=== PATIENT | female | born 1995 | race Caucasian/White ===

== ENCOUNTER 2020-02-20 08:27 | Outpatient (REF) | payer OTHER, SELFPAY ==
[2020-02-21 08:27] LABS: BV Int Neg Control Negative (Negative); BV Int Pos Control Positive (Positive)
[2020-02-22 05:41] LABS: C. trachomatis RNA TMA DETECTED (NOT DETECTED); N. gonorrhoeae RNA TMA NOT DETECTED (NOT DETECTED)
== END 2020-02-20 08:28 | disposition home or self-care (01) ==
LOC: HO.LAB 08:27
PROVIDERS: PCP Internal Medicine; Visit Provider Advanced Practice Midwife
DX: Z20.2 Contact with and (suspected) exposure to infections with a predominantly sexual mode of transmission (principal); N89.8 Other specified noninflammatory disorders of vagina
CPT/HCPCS: 87480; 87491; 87510; 87591; 87660

== ENCOUNTER 2020-02-22 09:18 | Outpatient (REF) | payer OTHER, SELFPAY ==
[2020-02-22 09:35] LABS: COVID-19 Test Negative (Negative)
== END 2020-02-22 09:19 | disposition home or self-care (01) ==
LOC: HO.EMPCOV 09:18
PROVIDERS: Visit Provider Internal Medicine
DX: Z20.828 Contact with and (suspected) exposure to other viral communicable diseases (principal)
CPT/HCPCS: 87635; C9803

== ENCOUNTER 2020-03-14 08:56 | Outpatient (REF) | payer OTHER, SELFPAY ==
[2020-03-14 09:20] LABS: COVID-19 Test Negative (Negative)
== END 2020-03-14 08:57 | disposition home or self-care (01) ==
LOC: HO.EMPCOV 08:56
PROVIDERS: Visit Provider Internal Medicine
DX: Z20.822 Contact with and (suspected) exposure to COVID-19 (principal)
CPT/HCPCS: 36415; 87635; C9803

== ENCOUNTER 2020-04-18 09:33 | Outpatient (REF) | payer OTHER, SELFPAY ==
[2020-04-18 10:01] LABS: COVID-19 Test Negative (Negative)
== END 2020-04-18 09:34 | disposition home or self-care (01) ==
LOC: HO.EMPCOV 09:33
PROVIDERS: Visit Provider Internal Medicine
DX: Z20.822 Contact with and (suspected) exposure to COVID-19 (principal)
CPT/HCPCS: 36415; 87635; C9803

== ENCOUNTER 2020-05-02 10:55 | Outpatient (REF) | payer OTHER, SELFPAY ==
[2020-05-02 11:11] LABS: COVID-19 Test Negative (Negative); IDNOW Serial# 55D5AD1C
== END 2020-05-02 10:56 | disposition home or self-care (01) ==
LOC: HO.EMPCOV 10:55
PROVIDERS: Visit Provider Internal Medicine
DX: Z11.52 Encounter for screening for COVID-19 (principal)
CPT/HCPCS: 36415; 87635; C9803

== ENCOUNTER 2020-08-17 13:07 | Outpatient (REF) | payer OTHER, SELFPAY ==
[2020-08-18 02:28] LABS: CT PCR NOT DETECTED (Not Detect.); NG PCR NOT DETECTED (Not Detect.)
[2020-08-18 11:16] LABS: BV Int Neg Control Negative (Negative); BV Int Pos Control Positive (Positive)
== END 2020-08-17 13:08 | disposition home or self-care (01) ==
LOC: HO.LAB 13:07
PROVIDERS: Visit Provider Advanced Practice Midwife
DX: N89.8 Other specified noninflammatory disorders of vagina (principal); Z20.2 Contact with and (suspected) exposure to infections with a predominantly sexual mode of transmission; Z32.02 Encounter for pregnancy test, result negative
CPT/HCPCS: 81025; 87480; 87491; 87510; 87591; 87660

== ENCOUNTER 2020-10-04 09:24 | Outpatient (REF) | payer OTHER, SELFPAY ==
[2020-10-04 11:28] LABS: MANUAL DIFF FLAG NO
[2020-10-04 11:33] LABS: Basophils Percent Auto 0.3 % (0-2); Eosinophils Absolute Auto 0.1 X10*3/uL (0.0-0.4); Eosinophils Percent Auto 0.8 % (0-4); Hematocrit 42.7 % (37-47); Hemoglobin 14.2 g/dl (12.0-16.0); Imm Gran Abs Auto 0.03 X10*3/uL (0.00-0.03); Imm Gran Pct Auto 0.4 % (0.0-0.4); Lymphocytes Absolute Auto 1.3 X10*3/uL (1.2-4.9); Lymphocytes Percent Auto 17.4 % (20-40); Mean Corpuscular HGB Conc 33.3 g/dl (31.0-35.0); Mean Corpuscular Hemoglobin 30.4 pg (27.0-33.0); Mean Corpuscular Volume 91.4 fL (80-98); Mean Platelet Volume 10.2 fL (9.4-12.3); Monocytes Absolute Auto 0.5 X10*3/uL (0.1-1.2); Monocytes Percent Auto 6.7 % (2-11); Neutrophils Absolute Auto 5.6 X10*3/uL (2.0-8.3); Neutrophils Percent Auto 74.4 % (45-73); Platelet Count 240 X10*3/uL (160-400); Red Blood Count 4.67 X10*6/uL (4.20-5.50); Red Cell Distribution Width 12.4 % (11.0-16.0); White Blood Count 7.5 X10*3/uL (4.8-10.8)
[2020-10-04 12:10] LABS: Alanine Aminotransferase 17 U/L (0-31); Anion Gap 14 (12-20); Aspartate Amino Transferase 20 U/L (5-31); Blood Urea Nitrogen 11 mg/dL (9-16); Calcium 9.8 mg/dL (8.4-10.2); Carbon Dioxide 26 mmol/L (22-29); Chloride 105 mmol/L (96-108); Cholesterol 113 mg/dL; Estimated Glomerular Filt Rate > 60; Glucose Fasting 76 mg/dL (60-99); HDL Cholesterol 60 mg/dL; LDL Cholesterol Calculated 44 mg/dl; Potassium 4.3 mmol/L (3.3-5.1); Sodium 141 mmol/L (135-145); Triglycerides 47 mg/dL
[2020-10-04 12:20] LABS: TSH reflex Free T4 1.81 uIU/mL (0.32-4.0); Vitamin D 25-OH Total 33.5 ng/mL (>30)
[2020-10-04 14:54] LABS: CT PCR NOT DETECTED (Not Detect.); NG PCR NOT DETECTED (Not Detect.)
[2020-10-04 16:32] LABS: Folate 14.9 ng/mL (> or = 4.0); Vitamin B12 328 pg/mL (200-900)
== END 2020-10-04 09:25 | disposition home or self-care (01) ==
LOC: HO.HMGCLDS 09:24
PROVIDERS: Advanced Practice Midwife; PCP Internal Medicine; Visit Provider Internal Medicine
DX: Z00.01 Encounter for general adult medical examination with abnormal findings (principal); R53.83 Other fatigue; B36.0 Pityriasis versicolor; I10 Essential (primary) hypertension; Z11.3 Encounter for screening for infections with a predominantly sexual mode of transmission
CPT/HCPCS: 36415; 80048; 80061; 82306; 82607; 82746; 84443; 84450; 84460; 85025; 87491; 87591

== ENCOUNTER 2020-11-23 12:19 | Outpatient (REF) | payer OTHER, SELFPAY ==
[2020-11-24 01:56] LABS: CT PCR NOT DETECTED (Not Detect.); NG PCR NOT DETECTED (Not Detect.)
[2020-11-24 15:19] LABS: BV Int Neg Control Negative (Negative); BV Int Pos Control Positive (Positive)
[2020-11-28 10:11] LABS: HPV mRNA E6/E7 rflx Not Detected (Not Detected)
== END 2020-11-23 12:20 | disposition home or self-care (01) ==
LOC: HO.LAB 12:19
PROVIDERS: PCP Internal Medicine; Visit Provider Obstetrics & Gynecology
DX: Z01.419 Encounter for gynecological examination (general) (routine) without abnormal findings (principal); Z11.51 Encounter for screening for human papillomavirus (HPV); Z11.3 Encounter for screening for infections with a predominantly sexual mode of transmission; N93.9 Abnormal uterine and vaginal bleeding, unspecified; N94.10 Unspecified dyspareunia
CPT/HCPCS: 87480; 87491; 87510; 87591; 87624; 87660; 88142

== ENCOUNTER 2020-11-28 08:20 | Outpatient (REF) | payer OTHER, SELFPAY ==
--- NOTE | ~2020-11-28 | US_ITS ---
EXAMINATION: US PELVIS CLINICAL INFORMATION: Abnormal bleeding COMPARISON: None TECHNIQUE: Ultrasound of the pelvis is performed using both transabdominal and transvaginal transducers along with Doppler. Transvaginal imaging is performed due to inadequate visualization transabdominally. FINDINGS: The uterus is anteverted and measures 7.8 x 3 x 3.5 cm in dimension. No focal uterine lesion is seen. Endometrial thickness is normal measuring 0.4 cm. There is trace fluid seen in the endocervical canal. The ovaries are normal-appearing. The right ovary measures 3.8 x 1.5 x 1.6 cm. The left ovary measures 3.4 x 1.8 x 2.7 cm. There is no fluid in the pelvis. US/US pelvic and transvaginal IMPRESSION: Normal pelvic ultrasound.
== END 2020-11-28 08:21 | disposition home or self-care (01) ==
LOC: HO.HMGCX 08:20
PROVIDERS: PCP Internal Medicine; Visit Provider Obstetrics & Gynecology
DX: N93.9 Abnormal uterine and vaginal bleeding, unspecified (principal)
CPT/HCPCS: 76830; 76856

== ENCOUNTER 2021-01-07 13:41 | Outpatient (REF) | payer OTHER, SELFPAY ==
[2021-01-08 09:16] LABS: BV Int Neg Control Negative (Negative); BV Int Pos Control Positive (Positive)
[2021-01-08 09:19] LABS: CT PCR NOT DETECTED (Not Detect.); NG PCR NOT DETECTED (Not Detect.)
== END 2021-01-07 13:42 | disposition home or self-care (01) ==
LOC: HO.LAB 13:41
PROVIDERS: PCP Internal Medicine; Visit Provider Obstetrics & Gynecology
DX: Z11.3 Encounter for screening for infections with a predominantly sexual mode of transmission (principal); B37.3 Candidiasis of vulva and vagina
CPT/HCPCS: 87480; 87491; 87510; 87591; 87660

== ENCOUNTER 2021-01-21 14:15 | Outpatient (REF) | payer OTHER, SELFPAY ==
[2021-01-22 03:01] LABS: CT PCR NOT DETECTED (Not Detect.); NG PCR NOT DETECTED (Not Detect.)
[2021-01-22 09:39] LABS: BV Int Neg Control Negative (Negative); BV Int Pos Control Positive (Positive)
== END 2021-01-21 14:16 | disposition home or self-care (01) ==
LOC: HO.LAB 14:15
PROVIDERS: PCP Internal Medicine; Visit Provider Obstetrics & Gynecology
DX: Z11.3 Encounter for screening for infections with a predominantly sexual mode of transmission (principal); B37.3 Candidiasis of vulva and vagina; N93.9 Abnormal uterine and vaginal bleeding, unspecified; N76.0 Acute vaginitis; B96.89 Other specified bacterial agents as the cause of diseases classified elsewhere
CPT/HCPCS: 87480; 87491; 87510; 87591; 87660

== ENCOUNTER 2021-02-13 09:51 | Outpatient (REF) | payer OTHER, SELFPAY ==
[2021-02-13 15:23] LABS: CT PCR NOT DETECTED (Not Detect.); NG PCR NOT DETECTED (Not Detect.)
[2021-02-14 09:34] LABS: BV Int Neg Control Negative (Negative); BV Int Pos Control Positive (Positive)
== END 2021-02-13 09:52 | disposition home or self-care (01) ==
LOC: HO.LAB 09:51
PROVIDERS: Visit Provider Obstetrics & Gynecology
DX: N76.0 Acute vaginitis (principal); B96.89 Other specified bacterial agents as the cause of diseases classified elsewhere; B37.3 Candidiasis of vulva and vagina; B36.0 Pityriasis versicolor; R53.83 Other fatigue; K21.9 Gastro-esophageal reflux disease without esophagitis; Z11.3 Encounter for screening for infections with a predominantly sexual mode of transmission; Z11.8 Encounter for screening for other infectious and parasitic diseases; Z83.3 Family history of diabetes mellitus; Z82.49 Family history of ischemic heart disease and other diseases of the circulatory system; Z80.1 Family history of malignant neoplasm of trachea, bronchus and lung
CPT/HCPCS: 87480; 87491; 87510; 87591; 87660

== ENCOUNTER → 2021-02-25 11:04 | Outpatient (BNVA) | payer OTHER, SELFPAY | PROVIDERS: Visit Provider Obstetrics & Gynecology ==

== ENCOUNTER 2022-08-06 11:57 | Outpatient (AMB) | payer OTHER, SELFPAY ==
--- NOTE | 2022-08-06 13:07 | A.OFFPC_ITS ---
Vital Signs 08/06/22 13:08 Height 5 ft 9.5 in Weight 178 lb BMI 25.9 BP 110/80 Blood Pressure Location Rt brachial Position Sitting Pulse 61 Pulse Source Pulse Oximeter Pulse Oximetry (%) 99 Oxygen Delivery Method Room Air Intake Visit Reasons: Back Pain Intake Note: Pt is here today c/o mid lower back pain due to excercising x1 mo. Allergies No Known Allergies [No Known Allergies*] Allergy (Verified 08/06/22 13:33) Medication List - Last Reconciled 08/06/22 by Debbie Echols MD clotrimazole-betamethasone 1-0.05 % 1 appl topical BID 5 days Tobacco use date assessed: 08/06/22 HPI Back Pain HPI Details 28-year-old lady here today complaining of recurrent pain on her lower left mid back present now for month. This started after she started doing some exercises, which involves some lifting of weights. Denies any radiation of pain down both lower extremities, no accompanying urinary or bowel incontinence, no weakness or numbness or tingling reported. She also complains of a pruritic rash, with central clearing, occurring mainly on her back and arms. This has been present for the last several weeks. [facility] Medical History (Updated 08/06/22 @ 13:41 by Debbie Echols MD) Lumbago with sciatica, left side Chronic GERD Tinea versicolor Fatigue Surgical History No pertinent past surgical history Family History Father Diabetes mellitus Substance use disorder Mother Diabetes mellitus Mental health disorder Maternal Grandmother Diabetes mellitus HTN (hypertension) Mental health disorder Maternal Grandfather Lung cancer Smoker Paternal Grandmother Breast cancer Brother No problems noted. Sister No problems noted. Sister No problems noted. Sister No problems noted. Social History Housing: Apartment Alcohol intake: current Alcohol intake frequency: holidays/special occasions only Patient Tobacco Use Status: Never used Tobacco e-Cigarette/Vaping Use: Never Used Second Hand Smoke Exposure: Yes Current occupational status: employed Sexual orientation: Straight/Heterosexual Cognitive needs: No Hearing needs: No Vision needs: Yes Female Reproductive History Menstrual Age of Menarche: 11 Questionnaire PHQ-9 Over the last 2 weeks, how often have you been bothered by any of the following problems? 1. Little interest or pleasure in doing things: not at all 2. Feeling down, depressed, or hopeless: not at all 3. Trouble falling or staying asleep, or sleeping too much: nearly every day 4. Feeling tired or having little energy: not at all 5. Poor appetite or overeating: not at all 6. Feeling bad about yourself - or that you are a failure or have let yourself or your family down: not at all 7. Trouble concentrating on things, such as reading the newspaper or watching television: several days 8. Moving or speaking so slowly that other people could have noticed. Or the opposite - being so fidgety or restless that you have been moving around a lot more than usual: several days 9. Thoughts that you would be better off or of hurting yourself in some way: not at all Total score: 5 Depression Screening Interpretation: Negative 53569 - PHQ-9 Billing: Yes Source: Developed by Drs. Karel Darnell, Milady Lyons, Gregory Howard and colleagues, with an educational jonathan from [employer]. Thrive Questionnaire Date Thrive assessed: 08/06/22 I am a: Patient What is your living situation today?: I have a steady place to live Within the past 12 months, did the food you bought not last and you didn't have the money to get more?: Never true Within the past 12 months, did you worry whether your food would run out before you got money to buy more?: Never true Do you have trouble paying for medicines?: No Do you have trouble getting transportation to medical appointments?: No Do you have trouble paying your heating and electricity bill?: No Do you have trouble taking care of your child, family member or friend?: No Do you have trouble with day-to-day activities such as bathing, preparing meals, shopping, managing finances, etc.?: No Are you currently unemployed and looking for a job?: No Are you interested in more education?: No AUDIT C Alcohol Use Questionnaire (AUDIT-C) 1. How often do you have a drink containing alcohol?: Monthly or less 2. How many drinks containing alcohol do you have on a typical day when you are drinking?: 1 or 2 3. How often do you have six or more drinks on one occasion?: Never Total Score: 1 ALIX-7 AMB Questionnaire ALIX-7 Date ALIX - 7 assessed: 08/06/22 Feeling nervous, anxious, or on edge: 1 = Several days Not being able to stop or control worryin = Several days Worrying too much about different things: 1 = Several days Trouble relaxin = Several days Being so restless that it is hard to sit still: 1 = Several days Becoming easily annoyed or irritable: 0 = Not at all Feeling afraid as if something awful might happen: 0 = Not at all Total ALIX-7 score (0-4 normal; 5-9 mild; 10-14 moderate; 15-21 severe): 5 Source: Developed by Drs. Karel Darnell, Milady Lyons, Gregory Howard and colleagues, with an educational jonathan from [employer]. ALIX-7 Assessment Billing ALIX-7 Assessment Tool: ALIX-7 Assessment 09655 Review of Systems Const All systems reviewed & are unremarkable except as noted in HPI and below Card Denies chest pain, Denies irregular heart rhythm and Denies dyspnea Resp Denies cough and Denies dyspnea GI Denies abdominal pain and Denies change in bowel habits Reports no additional complaints Skin/Breast Reports as per HPI Physical exam (Primary Care) Vital Signs: Last Vital Signs Pulse 61 08/06/22 13:08 BP 110/80 08/06/22 13:08 Pulse Ox 99 08/06/22 13:08 Oxygen Delivery Method Room Air 08/06/22 13:08 BMI result Body Mass Index 25.9 Tobacco/Smoking Status: Tobacco use Status Tobacco use date assessed 08/06/22 08/06/22 13:19 Patient Tobacco Use Status Never used Tobacco 08/06/22 13:19 e-Cigarette/Vaping Use Never Used 08/06/22 13:19 PHQ-9: PHQ-9 Score PHQ-9: Total score 7 08/07/22 08:17 Depression Screening Interpretation: Negative Thrive Assessment: Date of Thrive Assessment Date Thrive assessed 08/06/22 08/06/22 13:19 Const General: no acute distress Orientation/consciousness: patient oriented x3 Neck Neck: Yes full ROM, Yes no lymphadenopathy and Yes supple Resp Effort & Inspection: normal respiratory effort and able to speak in complete sentences Auscultation: clear to auscultation bilaterally Cardio Rate: regular rate Rhythm: regular rhythm Heart sounds: S1 normal heart sound present and S2 normal heart sound present GI Inspection: Yes normal to inspection Palpation (GI): Soft to palpation, nontender, no guarding and no masses Auscultation: normal bowel sounds Back/Spine/Pelvis Thoracic/Lumbar Spine: straight leg raise negative bilaterally and paraspinal muscle tenderness on the left Skin Other: Scattered hypopigmented patches on chest, back and upper extremities Neuro General: patient oriented x3, gait normal, tone normal, moves all extremities, Normal light touch and pain sensation and no focal motor deficits Cognition (Neuro): normal cognition Gait exam (Neuro): Normal gait present Motor exam (neuro): 5/5 motor strength present throughout Assessment and Plan Assessment & Plan (1) Lumbago with sciatica, left side: Code(s): M54.42 - Lumbago with sciatica, left side Plan: X-ray lumbar spine ordered, Referred for physical therapy (2) Tinea versicolor: Code(s): B36.0 - Pityriasis versicolor Plan: Prescription sent for ketoconazole 2% cream, to apply as directed Orders: Orders XR lumbar spine 4V min 08/06/22 M54.42 - Lumbago with sciatica, left side PT Evaluation and Treatment 08/06/22 M54.42 - Lumbago with sciatica, left side Medications: New ketoconazole 2% 1 appl topical DAILY 30 grams 0RF 10 days B36.0 - Pityriasis versicolor Coding Level of Care Code Est Pt Level 3 (54240) Diagnoses Lumbago with sciatica, left side M54.42 Tinea versicolor B36.0 Additional Codes ALIX-7 Assessment Billing - ALIX-7 Assessment Tool: ALIX-7 Assessment 51019 ([id number])
[2022-08-06 13:08] VITALS: BP 110/80; PULSE 61; O2SAT 99; BMI 25.9
== END 2022-08-06 13:47 | disposition home or self-care (01) ==
PROVIDERS: Visit Provider Internal Medicine
DX: M54.42 Lumbago with sciatica, left side (principal); B36.0 Pityriasis versicolor
CPT/HCPCS: 99499

== ENCOUNTER 2022-08-06 13:43 | Outpatient (REF) | payer OTHER, SELFPAY ==
--- NOTE | ~2022-08-06 | XR_ITS ---
EXAMINATION: XR LUMBOSACRAL SPINE WITH OBLIQUES CLINICAL INFORMATION: Lumbago with left-sided sciatica COMPARISON: None available. TECHNIQUE: AP, both oblique, and lateral views of the lumbar spine. Lateral view of the lumbosacral junction. FINDINGS: The vertebral bodies and posterior elements are aside from some minimal narrowing at the L3-L4 disc space. The disc spaces are for the most part preserved and the vertebral alignment is normal. The paraspinal soft tissues are normal. XR/XR lumbar spine 4V min IMPRESSION: Minimal narrowing at the L3-L4 disc space.
== END 2022-08-06 13:44 | disposition home or self-care (01) ==
LOC: HO.HMGCX 13:43
PROVIDERS: PCP Internal Medicine; Visit Provider Internal Medicine
DX: M54.42 Lumbago with sciatica, left side (principal)
CPT/HCPCS: 72110

== ENCOUNTER 2023-07-13 09:55 | Emergency (ER) | payer OTHER, SELFPAY ==
[2023-07-13 10:30] VITALS: BP 138/87; PULSE 62; RESP 16; TEMP 36.5; O2SAT 100; BMI 28.4
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
[2023-07-13 11:27] VITALS: BP 118/76; PULSE 65; RESP 17; TEMP 36.6; O2SAT 98
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
[2023-07-13 11:29] VITALS: BP 118/76; PULSE 65; RESP 17; TEMP 36.6; O2SAT 98
== END 2023-07-13 11:30 | disposition home or self-care (01) ==
PROVIDERS: Emergency Provider Emergency Medicine; PCP Internal Medicine
DX: S06.0X0A Concussion without loss of consciousness, initial encounter (principal); V58.1XXA Passenger in pick-up truck or van injured in noncollision transport accident in nontraffic accident, initial encounter; R11.0 Nausea; R51.9 Headache, unspecified; Y92.488 Other paved roadways as the place of occurrence of the external cause; Y93.9 Activity, unspecified; Y99.9 Unspecified external cause status
CPT/HCPCS: 99283

== ENCOUNTER 2024-06-21 15:15 | Outpatient (AMB) | payer OTHER, SELFPAY ==
[2024-06-21 15:20] VITALS: BP 132/76; PULSE 60; RESP 14; TEMP 36.6; O2SAT 99; BMI 27.9
--- NOTE | 2024-06-21 15:20 | A.OFFPC_ITS ---
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 Accompanied by: Self / Same As Patient Allergies No Known Allergies [No Known Allergies*] Allergy (Verified 06/21/24 15:54) Medication List - Last Reconciled 06/21/24 by Tianna Baca PA-C No Known Home Meds Tobacco use date assessed: 06/21/24 Dental Screening Dental Screen Date: 06/21/24 Did you have a dental visit in the last 12 months?: Yes Did you have a dental problem in the last 6 months where you did not have access to dental care?: No Was dental information given to patient?: Patient has dentist HPI annual physical HPI Details The patient is a 29-year-old female presenting for an annual physical exam. She would like to also discuss her lower back pain and left shoulder pain. The back pain has been ongoing for at least one month, with symptoms affecting her ability to perform physical activities, notably describing difficulty with lifting weights and performing certain movements without pain. The description of the pain involves shooting sensations, with a pattern that disrupts sleep, addressed by positioning maneuvers with a pillow. There is a noted history of recurrent back discomfort, typically resolving spontaneously; however, this episode has persisted longer than previous occurrences. Concerning the left shoulder, she notes frequent working out and an incident potentially leading to strain, specifically localizing the discomfort to the left side. Past medical history reveals episodes of heartburn, currently managed without medication use. Social History - Exercise: Patient engages in frequent workouts - Functional Status: Reports inability t o perform specific movements due to pain [facility] Medical History (Updated 06/21/24 @ 17:00 by Tianna Baca PA-C) Overweight with body mass index (BMI) of 27 to 27.9 in adult Annual physical exam Shoulder pain, left Back pain Lumbar disc narrowing Lumbago with sciatica, left side Chronic GERD Tinea versicolor Fatigue Surgical History No pertinent past surgical history Family History Father Diabetes mellitus Substance use disorder Mother Diabetes mellitus Mental health disorder Maternal Grandmother Diabetes mellitus HTN (hypertension) Mental health disorder Maternal Grandfather Lung cancer Smoker Paternal Grandmother Breast cancer Brother No problems noted. Sister No problems noted. Sister No problems noted. Sister No problems noted. Social History Housing: Apartment Alcohol intake: current Alcohol intake frequency: does not drink Patient Tobacco Use Status: Never used Tobacco e-Cigarette/Vaping Use: Never Used Second Hand Smoke Exposure: Yes Current occupational status: employed Sexual orientation: Straight/Heterosexual Cognitive needs: No Hearing needs: No Vision needs: Yes (rx glasses) Female Reproductive History Menstrual Age of Menarche: 11 Questionnaire PHQ-9 Over the last 2 weeks, how often have you been bothered by any of the following problems? 1. Little interest or pleasure in doing things: not at all 2. Feeling down, depressed, or hopeless: not at all 3. Trouble falling or staying asleep, or sleeping too much: not at all 4. Feeling tired or having little energy: not at all 5. Poor appetite or overeating: not at all 6. Feeling bad about yourself - or that you are a failure or have let yourself or your family down: not at all 7. Trouble concentrating on things, such as reading the newspaper or watching television: not at all 8. Moving or speaking so slowly that other people could have noticed. Or the opposite - being so fidgety or restless that you have been moving around a lot more than usual: not at all 9. Thoughts that you would be better off or of hurting yourself in some way: not at all Total score: 0 Source: Developed by Drs. Karel Darnell, Milady Lyons, Gregory Howard and colleagues, with an educational jonathan from [employer]. Thrive Questionnaire Date Thrive assessed: 06/21/24 I am a: Patient What is your living situation today?: I have a steady place to live Within the past 12 months, did the food you bought not last and you didn't have the money to get more?: Never true Within the past 12 months, did you worry whether your food would run out before you got money to buy more?: Never true Do you have trouble paying for medicines?: No Do you have trouble getting transportation to medical appointments?: No Do you have trouble paying your heating and electricity bill?: No Do you have trouble taking care of your child, family member or friend?: No Do you have trouble with day-to-day activities such as bathing, preparing meals, shopping, managing finances, etc.?: No Are you currently unemployed and looking for a job?: No Are you interested in more education?: No Please select the resources that you would like help with: None THRIVE Score: 0 AUDIT C Alcohol Use Questionnaire (AUDIT-C) 1. How often do you have a drink containing alcohol?: Never 3. How often do you have six or more drinks on one occasion?: Never Total Score: 0 ALIX-7 AMB Questionnaire ALIX-7 Date ALIX - 7 assessed: 06/21/24 Feeling nervous, anxious, or on edge: 0 = Not at all Not being able to stop or control worryin = Not at all Worrying too much about different things: 0 = Not at all Trouble relaxin = Not at all Being so restless that it is hard to sit still: 0 = Not at all Becoming easily annoyed or irritable: 0 = Not at all Feeling afraid as if something awful might happen: 0 = Not at all Total ALIX-7 score (0-4 normal; 5-9 mild; 10-14 moderate; 15-21 severe): 0 Source: Developed by Drs. Karel Darnell, Milady Lyons, Gregory Howard and colleagues, with an educational jonathan from [employer]. Review of Systems Const Details: - Musculoskeletal: Reports back and shoulder pain. Denies any other joint pain or swelling. - Neurological: Denies numbness, tingling, or weakness. - Gastrointestinal: Reports history of acid reflux. Denies any abdominal pain or changes in bowel habits. - General: Denies unintentional weight gain or loss. Physical exam (Primary Care) Vital Signs: Last Vital Signs Temp 97.8 F 06/21/24 15:20 Pulse 60 06/21/24 15:20 Resp 14 06/21/24 15:20 BP 132/76 06/21/24 15:20 Pulse Ox 99 04/29/25 15:20 Oxygen Delivery Method Room Air 06/21/24 15:20 Care Plan Goal for BP management: <130/90 at Goal BMI result Body Mass Index 27.9 BMI Assessment/Plan discussion: High BMI High, discussed plan: lifestyle, weight reduction, dietary, physical activity and alcohol moderation Tobacco/Smoking Status: Tobacco use Status Tobacco use date assessed 06/21/24 06/21/24 15:26 Patient Tobacco Use Status Never used Tobacco 06/21/24 15:26 e-Cigarette/Vaping Use Never Used 06/21/24 15:26 PHQ-9: PHQ-9 Score PHQ-9: Total score 0 06/21/24 15:26 Thrive Assessment: Date of Thrive Assessment Date Thrive assessed 06/21/24 06/21/24 15:26 Const Other: Appearance: Alert. Oriented X3. No acute distress. Head: Normal external exam. Normocephalic. Atraumatic. Eyes: Pupils are equal, round, and reactive to light. Extraocular movements intact. Conjunctiva and sclera normal. Eyelids normal. Ears: External auditory canal normal. Tympanic membranes normal. Throat: Pharynx normal. Uvula midline. Moist mucous membranes. Neck: Normal inspection. Neck supple. Full range of motion. No adenopathy. Thyroid Normal. No meningeal signs. No neck mass noted. Cardiovascular: Normal heart rate and rhythm. Heart sound normal. No murmurs noted. Pulses normal throughout. Respiratory: No respiratory distress. Painless inspiration. Breath sounds nor mal. No wheezes/rales/rhonchi noted. Chest nontender. No accessory muscle usage noted or decreased air movement noted. Abdomen: Soft and nontender. Back: No costovertebral angle tenderness. Full range of motion noted. Patient reports significant back pain, particularly on the right side, exacerbated by lifting weights or hinging at the hips. Pain has persisted for at least a month. There is no mid lumbar tenderness step-offs or deformities. Patient is neuro intact bilaterally and distally on all 4 extremities. No rashes, lesions, induration, fluctuance or signs of infection at this time. Skin: Skin warm and dry. Normal skin color. Normal skin turgor. No rashes/lesions/lacerations noted. Extremities: No lower extremity edema. Patient with tenderness to the left shoulder with decreased range of motion. Otherwise all other extremities exhibit normal range of motion and nontender. There is no extremity to upper extremities or lower extremities. Neuro: Oriented X 3. No motor deficit. No sensory deficit. Reflexes normal. Results Reviewed Results Reviewed: - Tests: Previous lumbar spine x-ray indicative of mild disc space narrowing conducted approximately a year ago. Coding Level of Care Code Est Pt Level 4 (26517) Est Pt Prev Care 18-39y(50553) Diagnoses Annual physical exam Z00.00 Lumbago with sciatica, left side M54.42 Lumbar disc narrowing M51.369 Back pain M54.9 Shoulder pain, left M25.512 Chronic GERD K21.9 Overweight with body mass index (BMI) of 27 to 27.9 in adult E66.3; Z68.27 Assessment & Plan Assessment & Plan (1) Annual physical exam: Code(s): Z00.00 - Encounter for general adult medical examination without abnormal findings Category: Medical (2) Lumbago with sciatica, left side: Code(s): M54.42 - Lumbago with sciatica, left side Category: Medical Plan: An MRI of the lumbar spine is scheduled, with the consideration to start with a lumbar x-ray as per insurance requirements. Patient will engage in physical therapy to aid in ameliorating the back pain. Monitoring and follow-up will depend on symptom progress. Condition is chronic and stable continue to monitor. (3) Lumbar disc narrowing: Code(s): M51.369 - Other intervertebral disc degeneration, lumbar region without mention of lumbar back pain or lower extremity pain Category: Medical Plan: An MRI of the lumbar spine is scheduled, with the consideration to start with a lumbar x-ray as per insurance requirements. Patient will engage in physical therapy to aid in ameliorating the back pain. Monitoring and follow-up will depend on symptom progress. Condition is chronic and stable continue to monitor. (4) Back pain: Code(s): M54.9 - Dorsalgia, unspecified Category: Medical Plan: An MRI of the lumbar spine is scheduled, with the consideration to start with a lumbar x-ray as per insurance requirements. Patient will engage in physical the rapy to aid in ameliorating the back pain. Monitoring and follow-up will depend on symptom progress. Condition is chronic and stable continue to monitor. (5) Shoulder pain, left: Code(s): M25.512 - Pain in left shoulder Category: Medical Plan: Left shoulder x-ray to be conducted, with possible MRI contingent on initial results. Physical therapy is to assist with recovery, and the patient is urged to limit activities that provoke pain. Condition is chronic and stable continue to monitor. (6) Chronic GERD: Code(s): K21.9 - Gastro-esophageal reflux disease without esophagitis Category: Medical Plan: Testing for H. pylori through a stool sample is to be completed to rule out infection as a reflux cause. Discussed standard lifestyle and dietary strategies to manage symptoms. Condition is chronic and stable continue to monitor. (7) Overweight with body mass index (BMI) of 27 to 27.9 in adult: Code(s): E66.3 - Overweight; Z68.27 - Body mass index [BMI] 27.0-27.9, adult Category: Medical Plan: Patient to continue improving her diet and exercise regimen. Condition is chronic and stable continue to monitor. Plan Plan Patient was informed and verbally consented to the use of an ambient scribe for clinic note documentation during this visit. 1. Back Pain An MRI of the lumbar spine is scheduled, with the consideration to start with a lumbar x-ray as per insurance requirements. Patient will engage in physical therapy to aid in ameliorating the back pain. Monitoring and follow-up will depend on symptom progress. 2. Shoulder Pain Left shoulder x-ray to be conducted, with possible MRI contingent on initial results. Physical therapy is to assist with recovery, and the patient is urged to limit activities that provoke pain. 3. Gastroesophageal Reflux Disease Gerd Testing for H. pylori through a stool sample is to be completed to rule out i nfection as a reflux cause. Discussed standard lifestyle and dietary strategies to manage symptoms. I explained the potential causes of the patient's back and shoulder pain and the rationale behind pursuing specific imaging studies like MRI and x-rays. Benefits and limitations of each diagnostic test were discussed, alongside insurance stipulations necessitating an x-ray prior to MRI precedence. We reviewed physical therapy as a primary intervention, emphasizing recovery facilitation and minimizing recurrence. Discussed diagnostic approach for GERD, notably pursuing an H. pylori test, considering recent findings in my patient demographic. Addressed various management strategies for reflux symptoms, including dietary adjustments, encouraging continued engagement with follow-up for progressive evaluation. Orders: Orders MR lumbar spine wo con Today M51.369 - Other intervertebral disc degeneration, lumbar region without mention of lumbar back pain or lower extremity pain, M54.42 - Lumbago with sciatica, left side, M54.9 - Dorsalgia, unspecified C Reactive Protein Today Z00.00 - Encounter for general adult medical examination without abnormal findings Comprehensive [place]. Panel Fast Today Z00.00 - Encounter for general adult medical examination without abnormal findings Magnesium Today Z00.00 - Encounter for general adult medical examination without abnormal findings Vitamin D 25-OH Total Today Z00.00 - Encounter for general adult medical examination without abnormal findings PT Evaluation and Treatment Today M25.512 - Pain in left shoulder, M51.369 - Other intervertebral disc degeneration, lumbar region without mention of lumbar back pain or lower extremity pain, M54.42 - Lumbago with sciatica, left side, M54.9 - Dorsalgia, unspecified XR shoulder LT min 2V Today M25.512 - Pain in left shoulder Complete Blood Count Auto Diff Today Z00.00 - Encounter for general adult medi bhavik examination without abnormal findings Erythrocyte Sedimentation Rate Today Z00.00 - Encounter for general adult medical examination without abnormal findings Liver Panel Today Z00.00 - Encounter for general adult medical examination without abnormal findings Lipid Panel Today Z00.00 - Encounter for general adult medical examination without abnormal findings Hemoglobin A1c Today Z00.00 - Encounter for general adult medical examination without abnormal findings TSH reflex Free T4 Today Z00.00 - Encounter for general adult medical examination without abnormal findings Vitamin B12 and Folate Today Z00.00 - Encounter for general adult medical examination without abnormal findings H pylori Ag Stool Today K21.9 - Gastro-esophageal reflux disease without esophagitis Patient Instructions: - Schedule and complete the shoulder x-ray and blood work. - Follow up on referrals for physical therapy. - Proceed with lumbar spine MRI as planned. - Return if experiencing any new or worsening symptoms. - Abide by dietary modifications for GERD and monitor response. - Arrange follow-up in six months or earlier if advised.
== END 2024-06-21 15:50 | disposition home or self-care (01) ==
LOC: HO.HMCSH 15:15
PROVIDERS: PCP Internal Medicine; Visit Provider Physician Assistant Medical
DX: Z00.00 Encounter for general adult medical examination without abnormal findings (principal); M25.512 Pain in left shoulder; M54.9 Dorsalgia, unspecified; M54.42 Lumbago with sciatica, left side; M51.369 Other intervertebral disc degeneration, lumbar region without mention of lumbar back pain or lower extremity pain; K21.9 Gastro-esophageal reflux disease without esophagitis; E66.3 Overweight; Z68.27 Body mass index [BMI] 27.0-27.9, adult

== ENCOUNTER → 2024-06-21 15:15 | Outpatient (BNVA) | payer OTHER, SELFPAY | PROVIDERS: PCP Internal Medicine; Visit Provider Physician Assistant Medical | DX: Z13.89 Encounter for screening for other disorder (principal) ==

== ENCOUNTER 2024-06-27 07:40 | Outpatient (REF) | payer OTHER, SELFPAY ==
--- NOTE | ~2024-06-27 | MR_ITS ---
EXAMINATION: MR LUMBAR SPINE WITHOUT IV CONTRAST History: M54.42 - Lumbago with sciatica, left side Technique: Sagittal T1, T2 and STIR, and axial T1 and T2 weighted images of the lumbar spine were obtained per departmental protocol. Comparison: Correlation is made with plain films of the lumbar spine dated 08/06/2022. Findings: The vertebral bodies maintain normal height, alignment, and marrow signal intensity. There is mild degenerative disc disease at the L3-4, L4-5, and L5-S1 levels with disc desiccation and loss of disc height At T12-L1,there is no evidence of disc herniation, central spinal stenosis, or neural foraminal narrowing. At L1-2, there is no evidence of disc herniation, central spinal stenosis, or neural foraminal narrowing. At L2-3, there is no evidence of disc herniation, central spinal stenosis, or neural foraminal narrowing. At L3-4, there is a small broad-based central disc protrusion with associated annular tear. There is no central spinal or neural foraminal stenosis. At L4-5, there is a mild disc bulge with central annular tear. There is no central spinal or neural foraminal stenosis. At L5-S1, there is a moderate diffuse disc bulge with a superimposed moderate central disc protrusion. This indents the thecal sac. There is no central spinal stenosis. There is narrowing of the bilateral neural foramen. The conus terminates at the T12-L1 level and demonstrates normal signal intensity. The visualized paraspinal soft tissues are unremarkable. MR/MR lumbar spine wo con Impression: 1. Small broad-based central disc protrusion with annular tear at L3-4. 2. Mild disc bulge with central annular tear at L4-5. 3. Moderate diffuse disc bulge with superimposed moderate central disc protrusion at L5-S1. Bilateral neural foraminal stenosis at this level. Electronically signed by: Karel Salvador MD 06/27/2024 11:46 AM EDT
[2024-06-27 09:10] LABS: MANUAL DIFF FLAG NO
[2024-06-27 09:20] LABS: Basophils Percent Auto 0.4 % (0-2); Eosinophils Percent Auto 0.4 % (0-4); Hematocrit 36.5 % (37.0-47.0); Hemoglobin 12.7 g/dl (12.0-16.0); Imm Gran Abs Auto 0.02 X10*3/uL (0.00-0.03); Imm Gran Pct Auto 0.4 % (0.0-0.4); Lymphocytes Absolute Auto 1.5 X10*3/uL (1.2-4.9); Mean Corpuscular HGB Conc 34.8 g/dl (31.0-35.0); Mean Corpuscular Volume 86.1 fL (80.0-98.0); Mean Platelet Volume 9.6 fL (9.4-12.3); Monocytes Absolute Auto 0.4 X10*3/uL (0.1-1.2); Neutrophils Absolute Auto 3.5 x10*3/uL (2.0-8.3); Neutrophils Percent Auto 63.8 % (45-73); Platelet Count 209 X10*3/uL (160-400); Red Blood Count 4.24 X10*6/uL (4.20-5.50); Red Cell Distribution Width 12.3 % (11.0-16.0); White Blood Count 5.5 X10*3/uL (4.8-10.8)
[2024-06-27 09:29] LABS: Estimated Average Glucose 97 mg/dL; Hemoglobin A1C 101.9309 umol/L; Total Hemoglobin (HGBA1C) 3324.1763 umol/L
[2024-06-27 09:59] LABS: Alanine Aminotransferase 11 U/L (0-31); Albumin Level 4.6 g/dL (3.5-5.0); Alkaline Phosphatase 54 U/L (39-117); Anion Gap 11 (12-20); Aspartate Amino Transferase 20 U/L (5-31); Bilirubin Direct 0.3 mg/dL (0.0-0.5); Bilirubin Total 0.7 mg/dL (0.0-1.0); Blood Urea Nitrogen 13 mg/dL (9-16); C Reactive Protein < 0.10 mg/dL (< or = 0.50); Calcium 9.8 mg/dL (8.4-10.2); Carbon Dioxide 26 mmol/L (22-29); Chloride 106 mmol/L (96-108); Cholesterol 115 mg/dL (<200); Estimated Glomerular Filt Rate > 60; Glucose Fasting 90 mg/dL (60-99); HDL Cholesterol 61 mg/dL (>40); LDL Cholesterol Calculated 45 mg/dL (<100); Magnesium 2.1 mg/dL (1.6-2.6); Potassium 4.1 mmol/L (3.3-5.1); Sodium 139 mmol/L (135-145); Total Protein 7.8 g/dL (6.5-8.0); Triglycerides 49 mg/dL (<150)
[2024-06-27 10:03] LABS: Erythrocyte Sedimentation Rate 14 MM/HR (0-20)
[2024-06-27 10:06] LABS: TSH reflex Free T4 1.64 uIU/mL (0.32-4.0); Vitamin D 25-OH Total 31.9 ng/mL (>30)
[2024-06-27 10:23] LABS: Folate > 20.0 ng/mL (> or = 4.0); Vitamin B12 555 pg/mL (200-900)
== END 2024-06-27 07:41 | disposition home or self-care (01) ==
LOC: HO.MRI 07:40
PROVIDERS: PCP Physician Assistant Medical; Visit Provider Physician Assistant Medical
DX: M54.42 Lumbago with sciatica, left side (principal); M51.369 Other intervertebral disc degeneration, lumbar region without mention of lumbar back pain or lower extremity pain; M54.9 Dorsalgia, unspecified; Z13.1 Encounter for screening for diabetes mellitus; Z13.6 Encounter for screening for cardiovascular disorders; Z00.00 Encounter for general adult medical examination without abnormal findings
CPT/HCPCS: 36415; 72148; 80053; 80061; 80076; 82248; 82306; 82607; 82746; 83036; 83735; 84443; 85025; 85652; 86140

== ENCOUNTER → 2024-06-27 07:44 | Outpatient (BNV) | payer OTHER, SELFPAY | PROVIDERS: PCP Physician Assistant Medical; Visit Provider Radiology Diagnostic Radiology | DX: M51.27 Other intervertebral disc displacement, lumbosacral region (principal); M48.07 Spinal stenosis, lumbosacral region | CPT/HCPCS: 72148 ==

== ENCOUNTER 2024-07-01 10:56 | Outpatient (AMB) | payer OTHER, SELFPAY ==
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
[2024-07-01 11:04] VITALS: BMI 27.9
== END 2024-07-01 11:43 | disposition home or self-care (01) ==
LOC: HO.HOS 10:57
PROVIDERS: PCP Physician Assistant Medical; Visit Provider Physical Medicine & Rehabilitation
DX: M51.26 Other intervertebral disc displacement, lumbar region (principal); M53.3 Sacrococcygeal disorders, not elsewhere classified
CPT/HCPCS: 99204

== ENCOUNTER → 2024-07-01 10:56 | Outpatient (BNVA) | payer OTHER, SELFPAY | PROVIDERS: PCP Physician Assistant Medical; Visit Provider Physical Medicine & Rehabilitation ==

== ENCOUNTER 2024-08-04 06:15 | Outpatient (REF) | payer OTHER, SELFPAY ==
--- NOTE | ~2024-08-04 | FL_ITS ---
EXAMINATION: FL GUIDANCE ONLY HISTORY: M51.369 - Other intervertebral disc degeneration, lumbar region without ... COMPARISON: None available. TECHNIQUE: Fluoroscopy time: 0.2 minutes. Cumulative Dose: 3.64 mGy. DAP: 0.0298 mGym2 Images: 3. FINDINGS: Fluoroscopic spot films of the lumbar spine demonstrate a needle and contrast material inferior to the right L5 pedicle. FL/FL guidance in treatment room IMPRESSION: Fluoroscopy during procedure. Please see procedure report for additional information. Electronically signed by: Karel Salvador MD 08/04/2024 03:07 PM EDT
== END 2024-08-04 06:16 | disposition home or self-care (01) ==
LOC: CF 06:15
PROVIDERS: Visit Provider Internal Medicine
DX: M51.369 Other intervertebral disc degeneration, lumbar region without mention of lumbar back pain or lower extremity pain (principal); M48.061 Spinal stenosis, lumbar region without neurogenic claudication; M54.42 Lumbago with sciatica, left side; M54.16 Radiculopathy, lumbar region
CPT/HCPCS: 64483; J1100; J2003; Q9967

== ENCOUNTER 2024-08-04 10:28 | Outpatient (AMB) | payer OTHER, SELFPAY ==
--- NOTE | 2024-08-04 10:29 | MHC.OFFVIS ---
Vital Signs 08/04/24 10:33 08/04/24 11:23 BP 116/78 123/89 Blood Pressure Location Lt brachial Rt radial Position Sitting Sitting Respiration 16 16 Pulse 52 52 Pulse Source Pulse Oximeter Pulse Oximeter Pulse Oximetry (%) 100 100 Oxygen Delivery Method Room Air Room Air Intake Visit Reasons: Right L5 TFESI Allergies No Known Allergies [No Known Allergies*] Allergy (Verified 07/01/24 11:04) HPI HPI Right L5 TFESI: Details: Patient presents for scheduled procedure. Denies any recent cough, cold, infection, fever or other significant changes in medical history since last office visit. 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 Sister No problems noted. Sister No problems noted. Sister No problems noted. Social History Housing: Apartment Alcohol intake: current Alcohol intake frequency: does not drink Patient Tobacco Use Status: Never used Tobacco e-Cigarette/Vaping Use: Never Used Second Hand Smoke Exposure: Yes Current occupational status: employed Sexual orientation: Straight/Heterosexual Cognitive needs: No Hearing needs: No Vision needs: Yes (rx glasses) Female Reproductive History Menstrual Age of Menarche: 11 Physical Exam Vital Signs: Last Vital Signs Pulse 52 08/04/24 11:23 Resp 16 08/04/24 11:23 BP 123/89 08/04/24 11:23 Pulse Ox 100 08/04/24 11:23 Oxygen Delivery Method Room Air 08/04/24 11:23 Office Procedures Details: Transforaminal epidural steroid injection, Right L5 After obtaining written consent, pre-procedure blood pressure and heart rate were stable and recorded in the nursing record. The patient was placed in the prone position on the fluoroscopy table. The lumbosacral area was prepped with chloraprep, allowed to dry and draped in sterile fashion. Using fluoroscopy, the skin overlying our target was anesthetized with 0.5% lidocaine. A 22 gauge 3.5 inch spinal needle was advanced to the safe triangle in the upper pole of the right L5 foramen. No paresthesias were elicited with needle placement and aspiration was negative for blood and CSF. Correct needle position was confirmed with approximately 1 ml contrast dye (Omnipaque 180 mg/ml) injected under real-time fluoroscopy. No evidence of vascular or intrathecal uptake was seen and there was both epidural and peripheral spread of the contrast agent. 10 mg dexamethasone plus 1 ml containing 0.5% lidocaine was slowly injected. The needle was flushed and removed. the same procedure was repeated for the remaining levels. The skin was cleansed and a sterile bandages were applied. The patient tolerated the procedure well and no complications were encountered. Following the procedure the patient's vital signs were stable. The patient was discharged home in good condition with post-procedural instructions. Time Out: Immediately prior to the procedure, the following was verbally confirmed that there is a signed consent form and that the correct patient, planned procedure, site and side are consistent with documentation and that necessary equipment and/or blood products are available prior to the start of the case. Complications: none EBL: <5 cc 54948 - Lumbar/Sacral Procedure code (CPT) selection complete Assessment & Plan Assessment & Plan (1) Neural foraminal stenosis of lumbar spine: Code(s): M48.061 - Spinal stenosis, lumbar region without neurogenic claudication Category: Medical (2) Lumbago with sciatica, left side: Code(s): M54.42 - Lumbago with sciatica, left side Category: Medical Plan Patient is status post right L5 TFESI. Patient tolerated procedure well and was discharged home in stable condition with discharge instructions. All questions were answered. We will follow-up via telephone or in clinic to assess response to therapy. A follow-up appointment was made during today's visit. Orders: Orders FL guidance in treatment room Today M51.369 - Other intervertebral disc degeneration, lumbar region without mention of lumbar back pain or lower extremity pain Coding Diagnoses Neural foraminal stenosis of lumbar spine M48.061 Lumbago with sciatica, left side M54.42 CPT Codes Transforaminal Epidural Steroid Inj - TESI 3: 51641 - Lumbar/Sacral ([id number])
[2024-08-04 10:33] VITALS: BP 116/78; PULSE 52; RESP 16; O2SAT 100
[2024-08-04 11:23] VITALS: BP 123/89; PULSE 52; RESP 16; O2SAT 100
== END 2024-08-04 11:26 | disposition home or self-care (01) ==
LOC: HO.PMCPRC 10:28
PROVIDERS: PCP Physician Assistant Medical; Visit Provider Internal Medicine
DX: M48.061 Spinal stenosis, lumbar region without neurogenic claudication (principal); M54.42 Lumbago with sciatica, left side
CPT/HCPCS: 64483